=== PATIENT | female | born 1950 | race Caucasian/White ===

== ENCOUNTER → 2018-04-28 00:59 | Outpatient (CLI) | payer MEDICARE, OTHER, SELFPAY ==
--- NOTE | 2018-04-28 09:45 | DI.REPORT_ITS ---
SYMPTOM/DIAGNOSIS: CHRONIC BACK PAIN, M54.89 LUMBAR SPINE MRI: Routine noncontrast examination was performed. The conus medullaris has a normal appearance and location. At L 5-S 1, there is disc desiccation. There is a mild diffuse disc bulge. No focal disc herniation or central spinal canal stenosis is seen. No significant neural foraminal stenosis is present. At L 4-5, there is grade I anterolisthesis of L 4 on L 5. There does appear to be bilateral spondylolysis of L 4. There is a diffuse bulge and mild narrowing of the central spinal canal. No significant neural foraminal stenosis is seen. There is disc desiccation present. At L 3-4, there is disc desiccation. There is a diffuse disc bulge. No focal disc herniation is seen. There are hypertrophic changes of the facets. These all contribute to cause mild central spinal canal stenosis. There is also mild right neural foraminal stenosis, the left neural foramen appears widely patent. At L 2-3, there is mild disc desiccation. Mild degenerative endplate signal changes are present. There is a mild diffuse disc bulge. Degenerative changes of the facets and ligamentum flavum are noted. There is mild narrowing of the central spinal canal. There is mild right neural foraminal stenosis and mild left neural foraminal stenosis. At L 1-2, there is a mild diffuse disc bulge but no focal disc herniation or central spinal canal stenosis is present. There is mild bilateral neural foraminal stenosis. Apart from the degenerative signal changes, the marrow signal is within normal limits. IMPRESSION: 1. 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 The findings do result in mild narrowing of the central spinal canal. 2. Mild to moderate multi level degenerative changes resulting in central spinal canal and neural foraminal stenosis as described above.
== END ==
PROVIDERS: PCP Physician Assistant Medical; Visit Provider Physician Assistant Medical
DX: M54.5 Low back pain (principal); G89.29 Other chronic pain; M43.07 Spondylolysis, lumbosacral region; M43.16 Spondylolisthesis, lumbar region
CPT/HCPCS: 72148

== ENCOUNTER 2018-06-16 20:59 | Outpatient (REF) | payer MEDICARE, OTHER, SELFPAY ==
[2018-06-16 21:19] LABS: Absolute Basophil Count 0.02 k/cumm (0.0-0.2); Absolute Eosinophil Count 0.03 k/cumm (0.0-0.7); Absolute Lymphocyte Count 1.68 k/cumm (1.2-3.4); Absolute Monocyte Count 0.26 k/cumm (0.11-0.7); Basophils % 0.5; Eosinophils % 0.7; HCT 40.2 % (36.0-46.0); HGB 12.7 g/dL (12.0-15.5); Lymphocytes % 40.1; Mean Corp. HGB Concentration 31.6 g/dL (32.0-36.0); Mean Corpuscular Hemoglobin 31.3 pg (27.0-33.0); Mean Platelet Volume 11.3 fL (8.0-11.0); Monocytes % 6.2; Neutrophils % 52.5; Platelet Count 279 x1000/uL (130-400); RBC 4.06 m/cumm (4.00-5.20); RBC Distribution Width 13.2 % (11.7-14.6); White Blood Cell Count 4.19 k/cumm (4.4-10.8)
[2018-06-16 21:29] LABS: ALT 47 U/L (12-78); AST 27 U/L (15-37); Albumin 3.7 g/dL (3.4-5.0); Alkaline Phosphatase 68 U/L (46-116); Anion Gap 5.7 mmol/L (3-11); Bilirubin, Total 0.5 mg/dL (0.2-1.0); CO2 30.3 mmol/L (21.0-32.0); CREATININE 0.69 mg/dL (0.55-1.02); Calcium 8.7 mg/dL (8.5-10.1); Chloride 107 mmol/L (98-107); Cholesterol 202 mg/dL (50-200); Glucose 112 mg/dL (70-100); HDL Cholesterol 94 mg/dL (40-60); LDL CHOLESTEROL 96 mg/dL (<100); Potassium 4.2 mmol/L (3.5-5.1); Sodium 143 mmol/L (136-145); Total Protein 7.1 g/dL (6.4-8.2); Triglyceride 65 mg/dL (30-150)
[2018-06-16 21:57] LABS: BUN 14 mg/dL (7-18)
== END 2018-06-16 21:19 ==
LOC: NCHCN 20:59
PROVIDERS: PCP Physician Assistant Medical; Visit Provider Physician Assistant Medical
DX: R53.83 Other fatigue (principal); Z13.6 Encounter for screening for cardiovascular disorders
CPT/HCPCS: 80053; 80061; 83721; 85025

== ENCOUNTER 2018-12-08 02:28 | Outpatient (CLI) | payer MEDICARE, SELFPAY | END 2018-12-08 02:48 | PROVIDERS: PCP Physician Assistant Medical; Visit Provider Nurse Practitioner Primary Care | DX: I49.3 Ventricular premature depolarization (principal); I49.1 Atrial premature depolarization | CPT/HCPCS: 93225 ==

== ENCOUNTER 2018-12-09 17:26 | Outpatient (CLI) | payer MEDICARE, SELFPAY ==
--- NOTE | 2018-12-10 09:14 | HOLTER_ITS ---
HOLTER MONITOR DATE OF DICTATION December 10, 2018 INDICATION PVCs REQUESTING PROVIDER Lalita Gallagher NP FINDINGS The patient was monitored for 1 day. The baseline sinus rhythm. Average heart rate 71 beats per minute, range 49 to 135 beats per minute. Frequent ventricular ectopy: 8205 single PVCs, 91 couplets and 5 triplets. Total PVC burden 8.1%. One 4-beat ventricular run with a maximum heart rate of 102. Rare supraventricular ectopy: 383 PACs. 4 atrial runs, longest 4 beats, fastest 146 beats per minute. No pause greater than 3 seconds. No higher degree heart block. 8 patient events. 6 events correlated with PVCs. All other events did not correlate with arrhythmias. FINAL INTERPRETATION Frequent PVCs, at times symptomatic. Fede Garcia M.D. KORI/shaheen T - 12/10/2018
== END 2018-12-09 17:46 ==
PROVIDERS: PCP Physician Assistant Medical; Visit Provider Nurse Practitioner Primary Care
DX: I49.3 Ventricular premature depolarization (principal); I49.1 Atrial premature depolarization
CPT/HCPCS: 93226

== ENCOUNTER 2018-12-10 08:19 | Outpatient (CLI) | payer MEDICARE, SELFPAY | END 2018-12-10 08:39 | PROVIDERS: PCP Physician Assistant Medical; Referring Provider Physician Assistant Medical; Visit Provider Student in an Organized Health Care Education/Training Program | DX: I49.3 Ventricular premature depolarization (principal); I49.1 Atrial premature depolarization | CPT/HCPCS: 93227 ==

== ENCOUNTER 2018-12-17 00:07 | Outpatient (CLI) | payer MEDICARE, SELFPAY ==
--- NOTE | 2018-12-17 14:00 | ETT_ITS ---
*[facility]* *[facility]* [address] [place] [address] Stress Electrocardiography Go protocol Date of study: 12/17/2018 *PATIENT PRESENTATION* Height: 184.2cm (72.5in) Blood Pressure: Weight: 80.9kg (178lb) BSA: 2.04m^2 Referring physician: Lalita Gallagher Aprn Ordering physician: Lalita Gallagher Aprn Impressions: - Negative stress test after maximal exercise. - PVC's subsided with exercise. No ventricular tachycardia. Summary: 1. Stress ECG conclusions: The stress ECG is negative. Baker treadmill score: 6. This score predicts a low risk of cardiac events. 2. Stress: The target heart rate was achieved. The heart rate response to stress is exaggerated. There is a normal resting blood pressure with an appropriate response to stress. The patient experienced no chest pain during stress. Exercise capacity is above normal for age. 3. Baseline ECG: Ventricular monomorphic bigeminy with left bundle branch block with an inferior axis QRS morphology. 4. Treadmill exercise testing was performed using the Go protocol. The patient exercised for 6 min, to protocol stage 2, to a maximal work rate of 7.1mets. Indication: R06.02, Appropriate Use Criteria: A (Appropriate). History: REASON FOR VISIT: PALPITATIONS WITH PVCs NOTED ON EKG DURING DOCTORS VISIT. PT DENIES ANY CHEST PAIN OR PRESSURE. PT WAS RECENTLY PUT ON FLOUXETINE IN ATTEMPTS TO DECREASE HER PALPITATIONS. Risk factors: Cholesterol: 220mg/dl. HDL: 94mg/dl. LDL: 96mg/dl. Triglycerides: 65mg/dl. ALLERGIES: NO KNOWN ALLERGIES. MEDICATIONS: FLUOXETINE 10 MG DAILY. MVI DAILY. Protocol: Go protocol. Baseline ECG: SINUS RHYTHM. VENTRICULAR BIGEMINY. HR 81 BPM. Normal sinus rhythm. Ventricular monomorphic bigeminy with left bundle branch block with an inferior axis QRS morphology. Stress protocol: + +---+ + !Stage !HR !BP (mmHg) ! + +---+ + !Baseline supine !81 !148/72 (97) ! + +---+ + !Baseline standing !108!140/80 (100) ! + +---+ + !Stage I; 1.7mph, 10degrees; 3 min !124!164/92 (116) ! + +---+ + !Stage II; 2.5mph, 12degrees; 3 min!148!166/92 (117) ! + +---+ + !Peak stress !167! ! + +---+ + !Recovery; 1 min !122!180/100 (127)! + +---+ + !Recovery; 3 min !101!180/100 (127)! + +---+ + !Recovery; 6 min !94 !162/92 (115) ! + +---+ + !Recovery; 9 min !94 !160/80 (107) ! + +---+ + * Stress results: Maximal heart rate during stress was 167bpm (111% of maximal predicted heart rate). The maximal predicted heart rate was 150bpm. The target heart rate was achieved. The heart rate response to stress is exaggerated. There is a normal resting blood pressure with an appropriate response to stress. The rate-pressure product for the peak heart rate and blood pressure was 74201ma Hg/min. The patient experienced no chest pain during stress. Exercise capacity is above normal for age. Stress ECG: TREADMILL PORTION OF STRESS TEST ENDED IN 6 MINUTES & 1 SECOND NORMAL HEART RATE AND BLOOD PRESSURE RESPONSE TO EXERCISE. MAX HR = 167 % OF TARGET = 111 FREQUENT VENTRICULAR BIGEMINY THROUGHOUT TESTING. OCCASIONAL COUPLETS. MULTIFOCAL PVCs NOTED. APPROXIMATE METS ACHIEVED = 7.05 PALPITATIONS REPORTED. NO ANGINA. NO SIGNIFICANT ST SEGMENT CHANGES ABOVE AVERAGE FUNCTIONAL CAPACITY FOR EXERCISE The stress ECG is negative. Baker treadmill score: 6. This score predicts a low risk of cardiac events. Study data: Fede Garcia MD supervised and was readily available during the procedure. This study was interpreted by [facility]. Study status: Routine. Consent: The risks, benefits, and alternatives to the procedure were explained to the patient and informed consent was obtained. Procedure: Initial setup. A baseline ECG was recorded. Surface ECG leads and manual cuff blood pressure measurements were monitored. Heart sounds: Normal. Lung sounds: Normal. Treadmill exercise testing was performed using the Go protocol. The patient exercised for 6 min, to protocol stage 2, to a maximal work rate of 7.1mets. Study completion: The patient tolerated the procedure well and was discharged from the lab. Discharge: The patient left the laboratory in stable condition. Birthdate: Patient birthdate: 1950. Sex: Gender: female. Study date: Study date: 12/17/2018. Study time: 00:01 AM. Signature Documentation: The Stress ECG portion of this study was interpreted by Fede Garcia MD. Electronically signed by Fede Garcia 12/17/2018 15:36
== END 2018-12-17 00:27 ==
PROVIDERS: PCP Physician Assistant Medical; Visit Provider Nurse Practitioner Primary Care
DX: R00.2 Palpitations (principal); R06.02 Shortness of breath; I49.3 Ventricular premature depolarization
CPT/HCPCS: 93016; 93018; 93017

== ENCOUNTER 2018-12-23 01:24 | Outpatient (CLI) | payer MEDICARE, SELFPAY ==
--- NOTE | 2018-12-23 09:05 | MERGE_ITS ---
*[facility]* *[facility]* [address] [place] [address] Date of study: 12/23/2018 Transthoracic Echocardiography M-mode, complete 2D, complete spectral Doppler, and color Doppler *STUDY CONCLUSIONS* Impressions: Frequent ectopy was noted on this study, making this study technically difficult for the assessment of cardiac function. Summary: 1. Left ventricle: The cavity size was mildly to moderately dilated. Wall thickness was normal. Systolic function was normal. The estimated ejection fraction was 55-60%. Wall motion was normal; there were no regional wall motion abnormalities. 2. Mitral valve: Mildly thickened leaflets. No echocardiographic evidence for prolapse. There was moderate regurgitation directed posteriorly. 3. Right ventricle: The cavity size was normal. Wall thickness was normal. Systolic function was normal. 4. Tricuspid valve: There was mild-moderate regurgitation. 5. Pulmonary arteries: Pulmonary systolic pressure was increased, in the range of 35mm Hg to 40mm Hg. *PATIENT PRESENTATION* Height: 182.9cm ((72in) ) S/D Pressure: 154 / 89 Weight: 80.7kg ((177.6lb) ) BSA: 2.03m^2 Test start time: 07:45 AM. Test stop time: 08:45 AM. PERFORMING Unknown PERFORMING [facility] CONSULTING Mari Barfield Melissa Aprn REFERRING Lalita Gallagher Aprn RIGGER THIRD Meghna Marion, (R)(CT), ADAMARIS *PROCEDURE DATA* Procedure information: The patient was identified by two identifiers. This study was interpreted by [facility]. Pertinent images and digital data are archived for permanent storage and are available for subsequent review. No prior study was available for comparison. Study status: Routine. Transthoracic echocardiography. M-mode, complete 2D, complete spectral Doppler, and color Doppler. A Transthoracic Echocardiogram was performed. Scanning was performed from the parasternal, apical, subcostal, and suprasternal notch acoustic windows. Images were obtained using an [id number] cardiac ultrasound machine. Image quality was adequate. Study completion: The patient tolerated the procedure well. There were no complications. History: PMH: SOB R06.02 PVCs. *CARDIAC ANATOMY* Left ventricle: The cavity size was mildly to moderately dilated. Wall thickness was normal. Systolic function was normal. The estimated ejection fraction was 55-60%. Wall motion was normal; there were no regional wall motion abnormalities. Aortic valve: Trileaflet; mildly thickened leaflets. Doppler: There was no stenosis. There was no significant regurgitation. VTI ratio of LVOT to aortic valve: 0.55. Valve area (VTI): 2.3cm^2. Indexed valve area (VTI): 1.1cm^2/m^2. Peak velocity ratio of LVOT to aortic valve: 0.59. Valve area (Vmax): 2.4cm^2. Indexed valve area (Vmax): 1.2cm^2/m^2. Mean velocity ratio of LVOT to aortic valve: 0.63. Valve area (Vmean): 2.6cm^2. Indexed valve area (Vmean): 1.3cm^2/m^2. Mean gradient (S): 6.4mm Hg. Peak gradient (S): 10.8mm Hg. Aorta: Aortic root: The aortic root was normal in size. Ascending aorta: The ascending aorta was normal in size. Mitral valve: Mildly thickened leaflets. Mobility was not restricted. No echocardiographic evidence for prolapse. Doppler: Transvalvular velocity was within the normal range. There was no evidence for stenosis. There was moderate regurgitation directed posteriorly. Valve area by pressure half-time: 2.9cm^2. Indexed valve area by pressure half-time: 1.4cm^2/m^2. Left atrium: The atrium was normal in size. Right ventricle: The cavity size was normal. Wall thickness was normal. Systolic function was normal. Pulmonic valve: Structurally normal valve. Doppler: Transvalvular velocity was within the normal range. There was no evidence for stenosis. There was mild regurgitation. Peak gradient (S): 2.5mm Hg. Tricuspid valve: Structurally normal valve. Doppler: Transvalvular velocity was within the normal range. There was no evidence for stenosis. There was mild-moderate regurgitation. Pulmonary artery: Pulmonary systolic pressure was increased, in the range of 35mm Hg to 40mm Hg. Right atrium: The atrium was normal in size. Pericardium: There was no pericardial effusion. Systemic veins: Inferior vena cava: Well visualized. The vessel was patent and normal in size. The respirophasic diameter changes were in the normal range (greater than or equal to 50%). Measurements Left ventricle Value Reference LV ID, ED, PLAX (H) 6.1 cm 3.5 - 6.0 LV ID, ES, PLAX (H) 4.3 cm 2.1 - 4.0 LV PW thickness, ED, PLAX 1.0 cm LV end-diastolic volume, 1-p A2C 122 ml LV ejection fraction, 1-p A2C 61 % LV end-diastolic volume, 1-p A4C 136 ml LV ejection fraction, 1-p A4C 59 % LV e', lateral 0.054 m/sec LV E/e', lateral 8 LV e', medial 0.053 m/sec LV E/e', medial 8 LV e', average 0.053 m/sec LV E/e', average 8 Ventricular septum Value Reference IVS thickness, ED, PLAX 1.0 cm LVOT Value Reference LVOT ID, S 2.3 cm LVOT ID, A-P 2.1 cm LVOT area 4.2 cm^2 LVOT peak velocity, S 0.96 m/sec LVOT mean velocity, S 0.76 m/sec LVOT VTI, S 18.6 cm LVOT peak gradient, S 3.7 mm Hg LVOT mean gradient, S 2.5 mm Hg Stroke volume (SV), LVOT DP 61 ml Stroke index (SV/bsa), LVOT DP 30 ml/m^2 Aortic valve Value Reference Aortic valve peak velocity, S 1.6 m/sec Aortic valve mean velocity, S 1.2 m/sec Aortic valve VTI, S 34.0 cm Aortic mean gradient, S 6.4 mm Hg Aortic peak gradient, S 10.8 mm Hg VTI ratio, LVOT/AV 0.55 Aortic valve area, VTI 2.3 cm^2 Velocity ratio, peak, LVOT/AV 0.59 Aortic valve area, peak velocity 2.4 cm^2 Velocity ratio, mean, LVOT/AV 0.63 Aortic valve area, mean velocity 2.6 cm^2 Aortic valve area/bsa, mean velocity 1.3 cm^2/m^2 Aorta Value Reference Aortic root ID, ED 3.0 cm Ascending aorta ID, A-P, S 3.2 cm Left atrium Value Reference LA ID, A-P, ES 3.4 cm LA ID/bsa, A-P 1.7 cm/m^2 <=2.2 LA area, ES, A4C (H) 25.8 cm^2 8.8 - 23.4 LA area, ES, A2C 23 cm^2 LA volume/bsa, ES, 1-p A4C 45 ml/m^2 LA volume, ES, 2-p 71 ml LA volume/bsa, ES, 2-p 35 ml/m^2 LA/aortic root ratio 1.14 Mitral valve Value Reference Mitral E-wave peak velocity 0.41 m/sec Mitral A-wave peak velocity 0.47 m/sec Mitral deceleration time (H) 263 ms 150 - 230 Mitral pressure half-time 76 ms Mitral E/A ratio, peak 0.87 Mitral valve area, PHT, DP 2.9 cm^2 Pulmonary veins Value Reference Pulmonary vein peak velocity, S 0.63 m/sec Pulmonary vein peak velocity, D 0.68 m/sec Pulmonary vein velocity ratio, peak, 0.92 S/D Pulmonary vein A-wave reversal peak 1.01 m/sec velocity Pulmonary vein A-wave reversal 182 ms duration Tricuspid valve Value Reference Tricuspid regurg peak velocity 3.3 m/sec Tricuspid peak RV-RA gradient 42.9 mm Hg Right atrium Value Reference RA area, ES, A4C (H) 20.2 cm^2 8.3 - 19.5 Pulmonic valve Value Reference Pulmonic peak gradient, S 2.5 mm Hg Pulmonic regurg velocity, ED 0.78 m/sec Legend: (L) and (H) ashlie values outside specified reference range. I have personally reviewed the images and have reviewed and edited the reported findings. Electronically signed by Fede Garcia 12/23/2018 15:48
== END 2018-12-23 01:44 ==
PROVIDERS: PCP Physician Assistant Medical; Visit Provider Nurse Practitioner Primary Care
DX: R06.02 Shortness of breath (principal); I49.3 Ventricular premature depolarization; I34.0 Nonrheumatic mitral (valve) insufficiency
CPT/HCPCS: 93306

== ENCOUNTER 2019-01-09 15:27 | Outpatient (REF) | payer MEDICARE, SELFPAY ==
[2019-01-09 20:07] LABS: TSH (W/Ref FT4) 1.95 uIU/mL (0.358-3.74)
== END 2019-01-09 15:47 ==
LOC: NCHCN 15:27
PROVIDERS: PCP Physician Assistant Medical; Visit Provider Physician Assistant Medical
DX: R00.2 Palpitations (principal); I49.3 Ventricular premature depolarization
CPT/HCPCS: 84443

== ENCOUNTER 2019-07-13 15:02 | Outpatient (REF) | payer MEDICARE, SELFPAY ==
[2019-07-13 22:17] LABS: Hemoglobin A1C 6.1 % (4.5-6.2)
[2019-07-13 22:22] LABS: ALT 29 U/L (14-59); AST 20 U/L (15-37); Albumin 4.1 g/dL (3.4-5.0); Alkaline Phosphatase 77 U/L (46-116); BUN 11 mg/dL (7-18); Bilirubin, Total 0.6 mg/dL (0.2-1.0); CREATININE 0.68 mg/dL (0.55-1.02); Calcium 9.5 mg/dL (8.5-10.1); Calculated LDL 116 mg/dL; Chloride 101 mmol/L (98-107); Cholesterol 234 mg/dL (50-200); Glucose 89 mg/dL (70-100); HDL Cholesterol 106 mg/dL (40-60); Potassium 4.7 mmol/L (3.5-5.1); Sodium 140 mmol/L (136-145); Total Protein 7.9 g/dL (6.4-8.2); Triglyceride 63 mg/dL (30-150)
[2019-07-15 11:53] LABS: Lyme Ab w Rflx to Lyme Confirm Negative (Negative)
[2019-07-16 17:47] LABS: Anaplasma phagocytophilum Negative (Negative); B. miyamotoi PCR Negative (Negative); Babesia divergens/MO-1 Negative (Negative); Babesia duncani Negative (Negative); Babesia microti Negative (Negative); Ehrlichia chaffeensis Negative (Negative); Ehrlichia ewingii/canis Negative (Negative); Ehrlichia muris eauclairensis Negative (Negative)
== END 2019-07-13 15:22 ==
LOC: NCHCN 15:02
PROVIDERS: PCP Physician Assistant Medical; Visit Provider Physician Assistant Medical
DX: I49.3 Ventricular premature depolarization (principal); R73.01 Impaired fasting glucose; Z13.6 Encounter for screening for cardiovascular disorders
CPT/HCPCS: 80053; 80061; 87798; 83036; 86618

== ENCOUNTER 2020-02-09 09:11 | Outpatient (REF) | payer MEDICARE, SELFPAY ==
[2020-02-09 19:16] LABS: Absolute Basophil Count 0.01 k/cumm (0.0-0.2); Absolute Eosinophil Count 0.02 k/cumm (0.0-0.7); Absolute Lymphocyte Count 2.09 k/cumm (1.2-3.4); Absolute Neutrophil Count 0.97 k/cumm (1.2-6.7); Basophils % 0.3; Eosinophils % 0.6; HCT 43.1 % (36.0-46.0); HGB 13.8 g/dL (12.0-15.5); Lymphocytes % 63.5; Mean Corpuscular Hemoglobin 29.9 pg (27.0-33.0); Mean Corpuscular Volume 93.5 fL (80-95); Mean Platelet Volume 11.5 fL (8.0-11.0); Monocytes % 6.1; Neutrophils % 29.5; Platelet Count 203 x1000/uL (130-400); RBC 4.61 m/cumm (4.00-5.20); RBC Distribution Width 13.8 % (11.7-14.6); White Blood Cell Count 3.29 k/cumm (4.4-10.8)
[2020-02-09 19:55] LABS: Hemoglobin A1C 5.7 % (3.8-5.6)
[2020-02-09 20:18] LABS: Diff Comment Diff Reviewed; RBC Morphology Normal
== END 2020-02-09 09:31 ==
LOC: NCHCN 09:11
PROVIDERS: PCP Physician Assistant Medical; Visit Provider Physician Assistant Medical
DX: R73.03 Prediabetes (principal); R53.83 Other fatigue
CPT/HCPCS: 83036; 85025

== ENCOUNTER 2020-07-04 20:01 | Outpatient (REF) | payer MEDICARE, SELFPAY ==
[2020-07-04 19:39] LABS: Hemoglobin A1C 5.7 % (<5.7)
[2020-07-04 20:24] LABS: Anion Gap 8.1 mmol/L (3-11); BUN 13 mg/dL (7-18); CO2 27.9 mmol/L (21.0-32.0); CREATININE 0.67 mg/dL (0.55-1.02); Calcium 9.3 mg/dL (8.5-10.1); Chloride 102 mmol/L (98-107); Glucose 98 mg/dL (74-106); Potassium 4.1 mmol/L (3.5-5.1); Sodium 138 mmol/L (136-145)
== END 2020-07-04 20:21 ==
LOC: NCHCN 20:01
PROVIDERS: PCP Physician Assistant Medical; Visit Provider Physician Assistant Medical
DX: R73.03 Prediabetes (principal); I49.3 Ventricular premature depolarization
CPT/HCPCS: 80048; 83036; 84443

== ENCOUNTER 2020-08-24 00:50 | Outpatient (CLI) | payer MEDICARE, SELFPAY ==
--- NOTE | 2020-08-24 | DI.US_ITS ---
EXAM: US SOFT TISSUE HEAD OR NECK CLINICAL HISTORY: GLOBUS SENSATION,F45.8. TECHNIQUE: Ultrasound was performed using standard protocol. COMPARISON: No exams were available for comparison FINDINGS: Sonographic assessment utilizing grayscale and color Doppler imaging was performed and targeted to th e area of clinical concern. Sonographic evaluation of the soft tissues of the neck was performed. No suspicious cystic or solid masses are seen in the soft tissues. Incidental note is made of a 1.1 x 0.5 x 0.5 cm spongiform hypo echoic nodule in the left lobe of the thyroid gland. It is well-circumscribed with no echogenic foci noted. This would corresponds to a TI-RADS level 2 nodule. No follow-up is recommended. IMPRESSION: No suspicious cystic or solid mass in the neck sonographically. DATA REPOSITORY:
--- OUTSIDE RECORDS SUMMARY | 2020-08-24 00:53 | XMS_ITS ---
:1950 Author Care Team Providers Name Role Phone Celi Sarkar Primary Care Provider Unavailable Allergies Code Code System Name Reaction Severity Status Onset NKDA ? Medications Name Status Start Date Stop Date ? ? azithromycin 250 mg tablet Active ? Not a vailable Cheratussin AC 10 mg-100 mg/5 mL oral liquid Active ? Not available Take 10 mL every 8 hours by oral route. ipratropium 0.5 mg-albuterol 3 mg (2.5 mg base)/3 mL nebulizatio n soln Active ? Not available 3 ml per nebulizer Levaquin 500 mg tablet Active ? Not avail able Take 1 tablet every 24 hours by oral route. Medrol (Ernesto) 4 mg tablets in a dose pack Active ? Not available use as directed Ventolin HFA 90 mcg/actuation aerosol inhaler Active ? Not available Inhale 2 puffs every 4 hours by inhalation route. Notes: pt no longer taking this medication Problems None recorded. Procedures Date Name Performed by ? 12/01/2017 XR, Chest Information not avai lable Results Lab Results None recorded. Past Encounters None recorded. Social History None recorded. Vaccine List None recorded. Plan of Care Reminders Provider Appointments None ? ? recorded. Lab None ? ? recorded. Referral None ? ? recorded. Procedures None ? ? recorded. Surgeries None ? ? recorded. Imaging None ? ? recorded. Vitals Height Weight BMI Blood Pressure 72 in 172 lbs 16 oz 23.5 kg/m2 132/88 mm[Hg]
== END 2020-08-24 01:10 ==
PROVIDERS: PCP Physician Assistant Medical; Visit Provider Physician Assistant Medical
DX: F45.8 Other somatoform disorders (principal)
CPT/HCPCS: 76536

== ENCOUNTER 2021-03-21 12:13 | Outpatient (REF) | payer MEDICARE, SELFPAY ==
[2021-03-21 20:06] LABS: HCT 42.9 % (36.0-46.0); HGB 13.6 g/dL (11.2-15.7); MCH 30.4 pg (27.0-33.0); MCHC 31.7 % (32.0-36.0); MCV 95.8 fL (80-95); MPV 11.5 fL (8.0-11.0); Platelet Count 207 10^3/uL (130-400); RBC 4.48 10^6/uL (3.93-5.22); RDW 13.5 % (11.7-14.6); RDW-SD 48.5 fL; WBC 3.51 10^3/uL (4.4-10.8)
[2021-03-21 20:58] LABS: Calculated LDL 125 mg/dL (<100); Cholesterol 228 mg/dL (<200); HDL Cholesterol 92 mg/dL (40-60); Triglyceride 59 mg/dL (<150)
[2021-03-21 22:51] LABS: Hemoglobin A1C 5.9 % (<5.7)
== END 2021-03-21 12:14 | disposition home or self-care (01) ==
LOC: NCHCN 12:13
PROVIDERS: PCP Physician Assistant Medical; Visit Provider Physician Assistant Medical
DX: Z00.8 Encounter for other general examination (principal); R73.03 Prediabetes; D72.819 Decreased white blood cell count, unspecified; R53.83 Other fatigue
CPT/HCPCS: 80061; 85027; 83036; 83735

== ENCOUNTER 2021-09-29 11:48 | Outpatient (REF) | payer MEDICARE, SELFPAY ==
[2021-10-01 10:15] LABS: Campylobacter PCR Negative (Negative); Salmonella PCR Negative (Negative); Shiga Toxin PCR Negative (Negative); Shigella/Enteroinvasive Ecoli Negative (Negative)
== END 2021-09-29 11:49 | disposition home or self-care (01) ==
LOC: NCHCN 11:48
PROVIDERS: PCP Physician Assistant Medical; Visit Provider Physician Assistant Medical
DX: R19.7 Diarrhea, unspecified (principal)
CPT/HCPCS: 87329; 87493; 87505; 83630

== ENCOUNTER 2021-10-17 11:09 | Outpatient (REF) | payer MEDICARE, SELFPAY ==
[2021-10-17 12:59] LABS: Abs Immature Grans 0.01 10^3/uL (0.0-0.06); Absolute Basophil Count 0.01 10^3/uL (0.0-0.2); Absolute Eosinophil Count 0.03 10^3/uL (0.0-0.7); Absolute Lymphocyte Count 1.81 10^3/uL (1.2-3.4); Absolute Monocyte Count 0.23 10^3/uL (0.1-0.8); Absolute Neutrophil Count 2.28 10^3/uL (1.2-6.7); Basophils % 0.2; Eosinophils % 0.7; HCT 43.6 % (36.0-46.0); HGB 13.7 g/dL (11.2-15.7); Immature Grans % 0.2; Lymphocytes % 41.4; MCH 30.2 pg (27.0-33.0); MCHC 31.4 % (32.0-36.0); MCV 96.2 fL (80-95); MPV 10.7 fL (8.0-11.0); Monocytes % 5.3; Neutrophils % 52.2; Nucleated RBC 0 %; Platelet Count 228 10^3/uL (130-400); RBC 4.53 10^6/uL (3.93-5.22); RDW-SD 46.4 fL; WBC 4.37 10^3/uL (4.4-10.8)
[2021-10-17 13:00] LABS: ESR 5 mm/hr (0-30)
[2021-10-17 13:51] LABS: Hemoglobin A1C 5.7 % (<5.7)
[2021-10-18 11:40] LABS: IgA 189 mg/dL (85-499); Interpretation (See Note); Tissue Transglutaminase IgA <1.2 U/mL (<4.0)
== END 2021-10-17 11:10 | disposition home or self-care (01) ==
LOC: NCHCN 11:09
PROVIDERS: PCP Physician Assistant Medical; Visit Provider Physician Assistant Medical
DX: R73.09 Other abnormal glucose; R19.4 Change in bowel habit
CPT/HCPCS: 82784; 83516; 85652; 83036; 85025

== ENCOUNTER 2021-11-03 00:38 | Outpatient (CLI) | payer MEDICARE, SELFPAY ==
--- NOTE | 2021-11-03 08:30 | DI.DEXA_ITS ---
Exam(s) XR DEXA BONE DENSITY W/WO LUCILA EXAM: XR DEXA BONE DENSITY W/WO LUCILA CLINICAL HISTORY: ASYMPTOMATIC POSTMENOPAUSAL STATUS, Z78.0 TECHNIQUE: COMPARISON: No exams were available for comparison FINDINGS: Lateral Spine Image: Unremarkable. No compression deformities identified. Left hip: Total T-Score: -2.0 Total Z-Score: -0.3 T- and Z-scores: Findings are consistent with osteopenia. Lumbar Spine: Total T-Score: -1.3 Total Z-Score: 1.0 T- and Z-scores: Findings are consistent with osteopenia. IMPRESSION: No evidence of osteoporosis.
== END 2021-11-03 00:58 ==
PROVIDERS: PCP Physician Assistant Medical; Visit Provider Physician Assistant Medical
DX: Z78.0 Asymptomatic menopausal state (principal); Z13.820 Encounter for screening for osteoporosis; M85.89 Other specified disorders of bone density and structure, multiple sites
CPT/HCPCS: 77080

== ENCOUNTER 2022-07-16 15:15 | Outpatient (REF) | payer MEDICARE, SELFPAY ==
[2022-07-16 17:14] LABS: HCT 41.9 % (36.0-46.0); HGB 13.4 g/dL (11.2-15.7); MCH 30.5 pg (27.0-33.0); MCV 95 fL (80-95); Platelet Count 232 10^3/uL (130-400); RBC 4.39 10^6/uL (3.93-5.22); RDW 13.2 % (11.7-14.6); RDW-SD 46.6 fL; WBC 4.36 10^3/uL (4.4-10.8)
[2022-07-16 17:28] LABS: ALT 26 U/L (14-59); AST 20 U/L (15-37); Albumin 3.8 g/dL (3.4-5.0); Alkaline Phosphatase 72 U/L (46-116); Anion Gap 7.3 mmol/L (3-11); BUN 11 mg/dL (7-18); Bilirubin, Total 0.6 mg/dL (0.2-1.0); CO2 29.7 mmol/L (21.0-32.0); CREATININE 0.6 mg/dL (0.55-1.02); Calculated LDL 130 mg/dL (<100); Chloride 103 mmol/L (98-107); Cholesterol 235 mg/dL (<200); Estimated GFR 94.13 (mL/min/1.73m2); Glucose 93 mg/dL (74-106); HDL Cholesterol 89 mg/dL (40-60); Potassium 3.8 mmol/L (3.5-5.1); Sodium 140 mmol/L (136-145); TSH (W/Ref FT4) 1.62 uIU/mL (0.36-3.74); Total Protein 7.8 g/dL (6.4-8.2); Triglyceride 81 mg/dL (<150)
== END 2022-07-16 15:16 | disposition home or self-care (01) ==
LOC: NCHCN 15:15
PROVIDERS: PCP Physician Assistant Medical; Visit Provider Physician Assistant Medical
DX: F41.8 Other specified anxiety disorders (principal); R73.03 Prediabetes; K21.9 Gastro-esophageal reflux disease without esophagitis; E78.89 Other lipoprotein metabolism disorders; Z00.8 Encounter for other general examination
CPT/HCPCS: 80053; 80061; 85027; 84443

== ENCOUNTER 2023-07-03 16:26 | Outpatient (REF) | payer MEDICARE, SELFPAY ==
[2023-07-03 20:26] LABS: Hemoglobin A1C 5.9 % (<5.7)
[2023-07-03 20:29] LABS: ALT 27 U/L (14-59); AST 19 U/L (15-37); Albumin 3.9 g/dL (3.4-5.0); Alkaline Phosphatase 74 U/L (46-116); Anion Gap 9.7 mmol/L (3-11); BUN 11 mg/dL (7-18); Bilirubin, Total 0.6 mg/dL (0.2-1.0); CO2 27.3 mmol/L (21.0-32.0); CREATININE 0.7 mg/dL (0.55-1.02); Calcium 9.9 mg/dL (8.5-10.1); Calculated LDL 124 mg/dL (<100); Chloride 101 mmol/L (98-107); Cholesterol 218 mg/dL (<200); Estimated GFR 90.14 (mL/min/1.73m2); Glucose 93 mg/dL (74-106); HDL Cholesterol 84 mg/dL (40-60); Potassium 5.1 mmol/L (3.5-5.1); Sodium 138 mmol/L (136-145); Total Protein 7.9 g/dL (6.4-8.2); Triglyceride 53 mg/dL (<150)
== END 2023-07-03 16:27 | disposition home or self-care (01) ==
LOC: NCHCN 16:26
PROVIDERS: PCP Physician Assistant Medical; Visit Provider Physician Assistant Medical
DX: R73.03 Prediabetes (principal); Z00.8 Encounter for other general examination
CPT/HCPCS: 80053; 80061; 83036

== ENCOUNTER 2024-01-06 16:22 | Outpatient (REF) | payer MEDICARE, SELFPAY ==
[2024-01-06 19:23] LABS: C-Reactive Protein < 0.50 mg/dL (<or=0.5)
[2024-01-06 19:26] LABS: ESR 7 mm/hr (0-30)
[2024-01-08 10:16] LABS: Lyme Ab w Rflx to Lyme Confirm Negative (Negative)
[2024-01-09 21:45] LABS: Anaplasma phagocytophilum Negative (Negative); B. miyamotoi PCR Negative (Negative); Babesia divergens/MO-1 Negative (Negative); Babesia duncani Negative (Negative); Babesia microti Negative (Negative); Ehrlichia chaffeensis Negative (Negative); Ehrlichia ewingii/canis Negative (Negative); Ehrlichia muris eauclairensis Negative (Negative)
== END 2024-01-06 16:23 | disposition home or self-care (01) ==
LOC: NCHCN 16:22
PROVIDERS: PCP Physician Assistant Medical; Visit Provider Nurse Practitioner Family
DX: L28.2 Other prurigo (principal)
CPT/HCPCS: 85652; 87798; 86140; 86618

== ENCOUNTER 2024-03-10 11:42 | Outpatient (REF) | payer MEDICARE, SELFPAY ==
[2024-03-10 16:01] LABS: ALT 23 U/L (14-59); AST 18 U/L (15-37); Albumin 3.6 g/dL (3.4-5.0); Alkaline Phosphatase 78 U/L (46-116); BUN 12 mg/dL (7-18); Bilirubin, Total 0.59 mg/dL (0.2-1.0); CREATININE 0.7 mg/dL (0.55-1.02); Calcium 9.4 mg/dL (8.5-10.1); Chloride 105 mmol/L (98-107); Estimated GFR 90.14 (mL/min/1.73m2); Glucose 112 mg/dL (74-106); Potassium 4.3 mmol/L (3.5-5.1); Sodium 140 mmol/L (136-145); Total Protein 7.5 g/dL (6.4-8.2)
[2024-03-10 16:18] LABS: Abs Immature Grans 0.01 10^3/uL (0.0-0.06); Absolute Basophil Count 0.03 10^3/uL (0.0-0.2); Absolute Eosinophil Count 0.08 10^3/uL (0.0-0.7); Absolute Lymphocyte Count 1.79 10^3/uL (1.2-3.4); Absolute Monocyte Count 0.25 10^3/uL (0.1-0.8); Absolute Neutrophil Count 2.08 10^3/uL (1.2-6.7); Basophils % 0.7 %; Eosinophils % 1.9 %; HCT 41.9 % (36.0-46.0); HGB 13.6 g/dL (11.2-15.7); Immature Grans % 0.2 %; Lymphocytes % 42.2 %; MCH 31.3 pg (27.0-33.0); MCHC 32.5 % (32.0-36.0); MCV 97 fL (80-95); MPV 10.8 fL (8.0-11.0); Monocytes % 5.9 %; Neutrophils % 49.1 %; Platelet Count 258 10^3/uL (130-400); RBC 4.34 10^6/uL (3.93-5.22); RDW 13.1 % (11.7-14.6); RDW-SD 46.7 fL; WBC 4.24 10^3/uL (4.4-10.8)
[2024-03-10 17:00] LABS: Hemoglobin A1C 5.8 % (<5.7)
== END 2024-03-10 11:43 | disposition home or self-care (01) ==
LOC: NCHCN 11:42
PROVIDERS: PCP Physician Assistant Medical; Visit Provider Physician Assistant Medical
DX: R53.83 Other fatigue (principal)
CPT/HCPCS: 80053; 83036; 85025

== ENCOUNTER 2024-09-24 09:11 | Outpatient (CLI) | payer MEDICARE, SELFPAY ==
[2024-09-24 11:41] LABS: HCT 45.8 % (36.0-46.0); HGB 14.6 g/dL (11.2-15.7); MCH 30.5 pg (27.0-33.0); MCHC 31.9 % (32.0-36.0); MCV 96 fL (80-95); MPV 10.6 fL (8.0-11.0); Platelet Count 237 10^3/uL (130-400); RBC 4.78 10^6/uL (3.93-5.22); RDW 12.7 % (11.7-14.6); RDW-SD 45.8 fL; WBC 4.81 10^3/uL (4.4-10.8)
[2024-09-24 12:42] LABS: Hemoglobin A1C 5.7 % (<5.7)
[2024-09-24 12:57] LABS: ALT 21 U/L (14-59); AST 15 U/L (15-37); Albumin 3.9 g/dL (3.4-5.0); Alkaline Phosphatase 80 U/L (46-116); Anion Gap 8.1 mmol/L (3-11); BUN 11 mg/dL (7-18); CO2 28.9 mmol/L (21.0-32.0); CREATININE 0.8 mg/dL (0.55-1.02); Calcium 9.5 mg/dL (8.5-10.1); Calculated LDL 124 mg/dL (<100); Chloride 102 mmol/L (98-107); Cholesterol 244 mg/dL (<200); Estimated GFR 76.31 (mL/min/1.73m2); Glucose 108 mg/dL (74-106); HDL Cholesterol 106 mg/dL (40-60); Magnesium 1.9 mg/dL (1.8-2.4); Potassium 3.8 mmol/L (3.5-5.1); Sodium 139 mmol/L (136-145); Triglyceride 70 mg/dL (<150); Vitamin D 25 Total 35.3 ng/mL (30-100)
== END 2024-09-24 09:12 | disposition home or self-care (01) ==
PROVIDERS: PCP Physician Assistant Medical; Visit Provider Physician Assistant Medical
DX: R73.03 Prediabetes (principal); M85.80 Other specified disorders of bone density and structure, unspecified site; F41.9 Anxiety disorder, unspecified
CPT/HCPCS: 36415; 80053; 80061; 82306; 85027; 83036; 83735

== ENCOUNTER 2024-11-08 16:21 | Emergency (ER) | payer MEDICARE, SELFPAY ==
[2024-11-08 16:24] VITALS: BP 158/91; PULSE 66; RESP 16; TEMP 36.6; O2SAT 98
--- NOTE | 2024-11-08 16:37 | ED.GENADUL_ITS ---
Discharge Plan Disposition Patient Disposition: Home Condition: Stable Discharge Details Clinical Impression: Scalp laceration, Compression fracture of T12 vertebra, Sprain of left wrist Primary Care Provider: Mari Barfield ED Provider: Fox Cazares Home Meds and New Rx's Prescriptions: No Action No Known Home Meds Discharge Instructions Instructions: Wrist Sprain ED, Laceration Repair With [place] ED, Vertebral Compression Fracture ED Additional Instructions: You were seen in the emergency department for your fall from a dining room chair suffering a T12 compression vertebral fracture, this requires no surgical intervention, time should improve your symptoms. You also have a sprained your left wrist, if you have persistent sharp pain in this area especially with range of motion about 2 weeks I stressed getting routine x-rays from her primary care provider in follow-up, you have a posterior scalp laceration that was repaired by 2 ivy, these will need to be removed in 7 to 10 days by presenting back to the ED or express care or your primary care provider. Please take 650 mg of Tylenol every 6 hours, assisted between Tylenol dosing Spacek for 100 mg of ibuprofen also every 6 hours. Please rest, ice, compress and elevate areas of pain. Please return for any urinary retention, bowel incontinence, numbness to the genitals, altered mentation or repetitive questioning, visual changes or gait or coordination abnormalities, sudden onset of projectile vomiting this evening with severe headache. Referrals: Mari Barfield PA [Primary Care Provider] - HPI General Date/Time Provider Initiated Documentation: 11/08/24 16:33 . HPI Narrative: 74 year-old female presents to ED today by POV/ambulating with a chief complaint of fall at home off a chair while changing the batteries in a clock, with onset just prior to arrival. Quality described as low back pain, and occipital head pain, and L wrist pain, no radiation to numbness/tingling, inability to move L hand, neck pain, LOC, nausea/vomiting, altered mentation, amnesia, urinary retention, bowel incontinence, saddle anesthesia, large deformity/bruising. Severity is described as moderate to severe. Palliating factors include nothing specific attempted. Provoking factors include nothing specific. Events leading up to the incident/Associated Symptoms: Patient is R-hand dominant. Patient not anticoagulated. Related Data Home Medications ?Medication ?Instructions ?Recorded ?Confirmed Unknown [No Known Home Meds] 11/08/24 11/08/24 Allergies Allergy/AdvReac Type Severity Reaction Status Date / Time No Known Allergies Allergy Unverified 11/08/24 16:28 General Stated Complaint: Fall/Non TraumaCriteria LUCINDA: 3 Review of Systems All systems reviewed & are unremarkable except as noted in HPI and below Exam Narrative Exam Narrative: GENERAL APPEARANCE: Well-nourished, non-toxic, awake and alert, atraumatic, no acute distress. SKIN: Warm, pink, dry, intact, without rashes/lesions/ulcerations. HEAD: Normocephalic, atraumatic, normal hair distribution for gender/age. EYES: Normal conjunctiva, no exudates on lids/lashes. ENT: Nares patent, no circumoral cyanosis, no facial swelling NECK: Supple, trachea midline, painless cervical ROM. LUNGS/CHEST: Non-labored respirations, normal A/P diameter, symmetrical expansion, no chest wall deformity, no rib tenderness/crepitus HEART (CV/PV): Regular rate, no peripheral edema, no JVD. ABDOMEN: Soft, non-distended, no guarding. MSK: Normal ROM, no swelling/deformity to bilateral UEs or LEs, moving all extremities without weakness, no cyanosis, spine midline without tenderness, normal curvature, mild tenderness and swelling to the left wrist without anatomical snuffbox tenderness, no crepitus or ecchymosis, left radial pulse 2+, able to supinate/pronate, 2 cm laceration occipital scalp without significant scalp hematoma, no cervical vertebral midline tenderness/crepitus/step-offs, mid line tenderness at the upper lumbar spine without crepitus or step-offs, neurovascular intact bilateral lower extremities. NEURO: Mental Status AAOx4 - alert to person, place, time, events No facial droop, no forehead involvement. Motor: No focal weakness - strength 5/5 in bilateral UEs and LEs, proximal and distal, symmetric. Sensory: sensation intact to light touch globally. Gait normal: patient ambulated without ataxia into ED room. PSYCH: euthymic, cooperative, pleasant, appropriate speech Course Vital Signs Vital signs: Vital Signs Temperature 36.6 C 11/08/24 16:24 Pulse 66 11/08/24 16:24 Respiratory Rate 16 11/08/24 16:24 Blood Pressure 158/91 H 11/08/24 16:24 Pulse Oximetry 98 11/08/24 16:24 Temperature 36.6 C 11/08/24 16:24 Pulse 66 11/08/24 16:24 Respiratory Rate 16 11/08/24 16:24 Blood Pressure 158/91 H 11/08/24 16:24 Pulse Oximetry 98 11/08/24 16:24 Pain Level 4 11/08/24 16:24 Procedure Laceration Laceration 1: Date of Procedure: 11/08/24 Time of procedure: 17:48 Provider that performed the procedure: Fox Cazares Standard Time Out Performed: No Patient Consented: Verbally Site: scalp Description: linear and clean Depth: simple, single layer Local anesthetic: LET(lidocaine epinephrine tetracaine) Amount of anesthesia used (mL): 3 Pre-repair:: wound explored, irrigated extensively and deep structures intact Skin layer closed with: ivy Number of sutures:: 2 Complications: None Medical Decision Making This dictation utilizes [id number] dictation software and may contain unedited grammatical errors. 74 year-old female presents to ED today by POV/ambulating with a chief complaint of fall at home off a chair while changing the batteries in a clock, with onset just prior to arrival. Quality described as low back pain, and occipital head pain, and L wrist pain, no radiation to numbness/tingling, inability to move L hand, neck pain, LOC, nausea/vomiting, altered mentation, amnesia, urinary retention, bowel incontinence, saddle anesthesia, large deformity/bruising. Sev erity is described as moderate to severe. Palliating factors include nothing specific attempted. Provoking factors include nothing specific. Events leading up to the incident/Associated Symptoms: Patient is R-hand dominant. Patients' medical history: Negative, otherwise healthy. Family and social history: Noncontributory. Pertinent exam findings / vital signs include mild tenderness and swelling to the left wrist without anatomical snuffbox tenderness, no crepitus or ecchymosis, left radial pulse 2+, able to supinate/pronate, 2 cm laceration occipital scalp without significant scalp hematoma, no cervical vertebral midline tenderness/crepitus/step-offs, midline tenderness at the upper lumbar spine without crepitus or step-offs, neurovascular intact bilateral lower extremities. Differential / pathologies of concern include scalp laceration, vertebral fracture, wrist fracture, sprain/strain, contusion. Diagnostic studies of: -CT thoracic and lumbar spine without contrast, XR left wrist-shows an isolated T12 compression fracture with less than 10% height loss, no acute findings of the left wrist. Interventions of: -Wrist brace provided, recommend RICE therapy and therapeutic dosing of Tylenol and ibuprofen for compression fracture of T12. -Stable repair of his typical scalp laceration,#2 ivy -Tdap UTD 2022 ED Course/Assessment/Plan: 74-year-old female was changing batteries 2:00 and suffered a fall from a dining room chair striking her lower back and occipital scalp inside of her home, as this simple linear occipital scalp laceration which was repaired with 2 ivy, advised she will need to return in 7 to 10 days for staple removal, he is neurovascularly intact in bilateral lower extremities without any signs of cauda equina, isolated T12 compression fracture with minimal height loss requiring no intervention, no acute fracture at the left wrist advised repeat x-ray if significant pain continues in about 2 weeks, recommend RICE therapy and therapeutic dosing of Tylenol and ibuprofen, strict return criteria for any neurologic changes this evening, her and her verbalized understanding of this but at this point she is neurologically intact and has no signs of significant question and is low risk for intracranial hemorrhage Findings not consistent with ICH, cauda equina, wrist fracture, vertebral burst fracture, neurovascular compromise. Disposition of Scalp Laceration, Compression Fracture of T12 Vertebrae, Sprain of Left Wrist. Patient verbalized understanding of the plan and return to ED criteria and engaged in shared decision making. Medical Records Medical records reviewed: Yes I reviewed the patient's medical records. Imaging Data Radiologic Study: Attestation: I personally reviewed and interpreted this imaging study as follows: Imaging: X-Ray Radiologist's impression: EXAM: XR WRIST LT COMP NAVICULAR CLINICAL HISTORY: fall; L wrist pain. TECHNIQUE: 2D digital imaging was performed. COMPARISON: No exams were available for comparison FINDINGS: Four views There is no evidence of fracture or carpal dislocation nor significant ulnar variance. Scaphoid and scapholunate distance are unremarkable. Advanced degenerative changes in the 1st carpometacarpal joint are incidentally noted. Other articulations appear unremarkable. IMPRESSION: No acute fractures evident. Chronic degenerative changes are noted at the 1st carpometacarpal joint. Radiologic Study #2: Attestation: I personally reviewed and interpreted this imaging study as follows: Imaging: CT Scan Radiologist's impression: EXAM: CT LUMBAR SPINE WO CLINICAL HISTORY: lumbar pain, fall. TECHNIQUE: Imaging Protocol: Axial computed tomography images with coronal and sagittal reformatted images were created and reviewed COMPARISON: MR MRI - LUMBAR SPINE WO CONTRAST from 04/28/2018 CR XR DEXA BONE DENSITY W/WO LUCILA from 11/03/2021 FINDINGS: Bones: There is an acute appearing transverse fracture in the inferior half of T12 vertebral body, with minimal if any significant height loss of this vertebral body. There is no retropulsed cortex at this level... There are no lytic osseous lesions evident. In the lower lumbar spine there are chronic findings at L4-5 level with 1.4 cm anterior listhesis of L4 upon L5, similar to previous MRI scan of 2018. Central canal dimensions at this level are lower normal. There is no significant foraminal stenosis at this level. There is also degenerative antro listhesis of L3 upon L4 which has slightly increased from the MRI scan of 2018. There is no disc height loss at this level. Central canal dimensions are lower normal. Minimal foraminal stenosis at this level. INDIVIDUAL DISC LEVELS: There are no obvious focal disc herniations evident. PARASPINAL SOFT TISSUES: Visualized paraspinal tissues appear unremarkable. Sacroiliac joints appear unremarkable. IMPRESSION: 1. Main acute finding here is a transverse fracture in the inferior 3rd of the T12 vertebral body without significant height loss of this vertebral body at this time and no listhesis. Fracture does not extend into the pedicles. No retropulsed posterior cortex at this level If clinically indicated CT scan of thoracic spine can be performed if there is pain higher up than T12. 2. Other chronic listhesis evident at L3-4 and L4-5 levels as described above. Called by myself to ER 11/08/2024 at 5:30 p.m. Radiologic Study #3: Attestation: I personally reviewed and interpreted this imaging study as follows: Imaging: CT Scan Radiologist's impression: EXAM: CT THORACIC SPINE WO CLINICAL HISTORY: T12 frac on lumbar scan. TECHNIQUE: Imaging Protocol: Axial computed tomography images with coronal and sagittal reformatted images were created and reviewed. CONTRAST MATERIAL: Intravenous: None COMPARISON: CT CT LUMBAR SPINE WO from 11/08/2024 FINDINGS: OSSEOUS: There is a subtle transverse fracture in the lower 3rd of the T12 vertebral body without significant displacement and there is only minimal height loss at the inferior endplate level. Fracture lines do not extend into the pedicles. The posterior cortex of this vertebral body is intact and with no evidence of retropulsion nor spinal canal compromise at this level. No large disc herniations evident there is no prominent para-aortic hematoma. There are no other fractures evident in the thoracic spinal column. No listhesis. No facet joint malalignment. Soft tissues: Incidentally noted are nodules in the right thyroid lobe. There is also a benign cyst in left kidney incidentally noted. This does not require further workup. IMPRESSION: T12 fracture with slight indentation of the inferior endplate. Approximately 10 percent height loss. Posterior cortex is intact. Fracture does not extend into the posterior osseous elements and there is no canal compromise at this level nor elsewhere in the thoracic spinal column. There are no other thoracic vertebral body fractures. Report called by myself to ER 11/08/2024 at 6:12 p.m. Quality:SDOH Health Related Social Needs: No Data to Display [facility] All Active Problems (Updated 11/08/24 @ 18:34 by CHELY Zhang) Sprain of left wrist (Acute) Compression fracture of T12 vertebra (Acute) Scalp laceration (Acute) Thyroid nodule (Acute) Gastro-esophageal reflux disease without esophagitis (Acute) Social History Smoking/Tobacco Use Status: Never Smoking risk assessment performed?: Yes Alcohol Intake: current Alcohol Intake frequency: a few times a month Drug use: Never Substance use type: does not use Housing: house Do you feel safe at home: Yes Do you feel safe in your relationship?: Yes
--- NOTE | 2024-11-08 16:45 | DI.CT_ITS ---
Exam(s) CT LUMBAR SPINE WO EXAM: CT LUMBAR SPINE WO CLINICAL HISTORY: lumbar pain, fall. TECHNIQUE: Imaging Protocol: Axial computed tomography images with coronal and sagittal reformatted images were created and reviewed COMPARISON: MR MRI - LUMBAR SPINE WO CONTRAST from 04/28/2018 CR XR DEXA BONE DENSITY W/WO LUCILA from 11/03/2021 FINDINGS: Bones: There is an acute appearing transverse fracture in the inferior half of T12 vertebral body, w ith minimal if any significant height loss of this vertebral body. There is no retropulsed cortex at this level... There are no lytic osseous lesions evident. In the lower lumbar spine there are chronic findings at L4-5 level with 1.4 cm anterior listhesis of L4 upon L5, similar to previous MRI scan of 2018. Central canal dimensions at this level are lower n ormal. There is no significant foraminal stenosis at this level. There is also degenerative antro l isthesis of L3 upon L4 which has slightly increased from the MRI scan of 2018. There is no disc heig ht loss at this level. Central canal dimensions are lower normal. Minimal foraminal stenosis at thi s level. INDIVIDUAL DISC LEVELS: There are no obvious focal disc herniations evident. PARASPINAL SOFT TISSUES: Visualized paraspinal tissues appear unremarkable. Sacroiliac joints appear unremarkable. IMPRESSION: 1. Main acute finding here is a transverse fracture in the inferior 3rd of the T12 vertebral body wit hout significant height loss of this vertebral body at this time and no listhesis. Fracture does not extend into the pedicles. No retropulsed posterior cortex at this level If clinically indicated CT scan of thoracic spine can be performed if there is pain higher up than T1 2. 2. Other chronic listhesis evident at L3-4 and L4-5 levels as described above. Called by myself to ER 11/08/2024 at 5:30 p.m. RADIATION DOSE DELIVERED: 946.77mGy.cm Total DLP DATA REPOSITORY: All CT scans at this facility are submitted to the National Radiology Data Registry (NRDR) Dose Index Registry (DIR) with the [employer] ([employer]). RADIATION OPTIMIZATION: All CT scans at this facility use at least one of these dose optimization te chniques: automated exposure control; mA and/or kV adjustment per patient size (includes targeted exa ms where dose is matched to clinical indication); or iterative reconstruction.
--- NOTE | 2024-11-08 16:45 | DI.RAD_ITS ---
Exam(s) XR WRIST LT COMP NAVICULAR EXAM: XR WRIST LT COMP NAVICULAR CLINICAL HISTORY: fall; L wrist pain. TECHNIQUE: 2D digital imaging was performed. COMPARISON: No exams were available for comparison FINDINGS: Four views There is no evidence of fracture or carpal dislocation nor significant ulnar variance. Scaphoid and scapholunate distance are unremarkable. Advanced degenerative changes in the 1st carpometacarpal mando nt are incidentally noted. Other articulations appear unremarkable. IMPRESSION: No acute fractures evident. Chronic degenerative changes are noted at the 1st carpometacarpal joint. DATA REPOSITORY: RADIATION DOSE DELIVERED:
[2024-11-08] MEDS: Lidocaine/Epinephri/Tetracaine Topical Gel 3 ML TP (17:05)
--- NOTE | 2024-11-08 17:30 | DI.CT_ITS ---
Exam(s) CT THORACIC SPINE WO EXAM: CT THORACIC SPINE WO CLINICAL HISTORY: T12 frac on lumbar scan. TECHNIQUE: Imaging Protocol: Axial computed tomography images with coronal and sagittal reformatted images were created and reviewed. CONTRAST MATERIAL: Intravenous: None COMPARISON: CT CT LUMBAR SPINE WO from 11/08/2024 FINDINGS: OSSEOUS: There is a subtle transverse fracture in the lower 3rd of the T12 vertebral body without sig nificant displacement and there is only minimal height loss at the inferior endplate level. Fracture lines do not extend into the pedicles. The posterior cortex of this vertebral body is intact and wi th no evidence of retropulsion nor spinal canal compromise at this level. No large disc herniations evident there is no prominent para-aortic hematoma. There are no other fractures evident in the thoracic spinal column. No listhesis. No facet joint ma lalignment. Soft tissues: Incidentally noted are nodules in the right thyroid lobe. There is also a benign cyst in left kidney incidentally noted. This does not require further workup. IMPRESSION: T12 fracture with slight indentation of the inferior endplate. Approximately 10 percent height loss. Posterior cortex is intact. Fracture does not extend into the posterior osseous elements and there is no canal compromise at this level nor elsewhere in the thoracic spinal column. There are no othe r thoracic vertebral body fractures. Report called by myself to ER 11/08/2024 at 6:12 p.m. RADIATION DOSE DELIVERED: 982.34mGy.cm Total DLP DATA REPOSITORY: All CT scans at this facility are submitted to the National Radiology Data Registry (NRDR) Dose Index Registry (DIR) with the [employer] ([employer]). RADIATION OPTIMIZATION: All CT scans at this facility use at least one of these dose optimization te chniques: automated exposure control; mA and/or kV adjustment per patient size (includes targeted exa ms where dose is matched to clinical indication); or iterative reconstruction.
[2024-11-08 18:56] VITALS: BP 148/98; PULSE 62; RESP 18; TEMP 36.9; O2SAT 100
== END 2024-11-08 18:56 | disposition home or self-care (01) ==
PROVIDERS: Emergency Provider Physician Assistant; PCP Physician Assistant Medical
DX: S22.080A Wedge compression fracture of T11-T12 vertebra, initial encounter for closed fracture (principal); S63.502A Unspecified sprain of left wrist, initial encounter; S01.01XA Laceration without foreign body of scalp, initial encounter; W07.XXXA Fall from chair, initial encounter
CPT/HCPCS: 12001; 29125; 99284; 72128; 72131; 73110; 99283

== ENCOUNTER 2024-11-10 07:51 | Emergency (ER) | payer MEDICARE, SELFPAY ==
[2024-11-10 07:54] VITALS: BP 156/96; PULSE 79; TEMP 36.6; O2SAT 99
--- NOTE | 2024-11-10 08:04 | ED.GENADUL_ITS ---
Discharge Plan Disposition Patient Disposition: Home Discharge Details Clinical Impression: Stapled skin wound, Blood pressure elevated without history of HTN Primary Care Provider: Mari Barfield ED Provider: Belen Hicks Home Meds and New Rx's Prescriptions: No Action No Known Home Meds Discharge Instructions Additional Instructions: Please call your primary care provider to schedule a nurse visit to have your blood pressure rechecked. Have your ivy removed as discussed (there is just one remaining). Your wound is healing well. Gentle wound care as discussed. Try to avoid knit hats that may snag in your ivy Return to emergency care if you develop new chest pains, shortness of breath, severe headache,or if you are very worried and need to be rechecked again immediately Referrals: Mari Barfield PA [Primary Care Provider] - HPI General Date/Time Provider Initiated Documentation: 11/10/24 07:52 . HPI Narrative: Ivis is a 74 year old female who presents to the emergency department today for evaluation of loosened scalp staple. She reports she had ivy placed on Saturday (3 days ago) after a fall during which she sustained a scalp laceration. Yesterday she wore a knit cap and washed her hair (which she does every other day), feels a staple became loosened and caused her difficulty sleeping. No redness, bleeding, or pain around laceration. Past medical history is significant for T12 compression fx and L wrist sydnie associated with fall. Physical exam reassuring. Two scalp ivy in place, one of which is visibly partially dislodged from skin. Edges well approximated. NO surrounding e rythema/ecchymosis, drainage from wound, or tenderness with palpation. Partially dislodged staple removed for comfort. Advise f/u 7-10 days after placement of ivy for removal of remaining staple. Ivis's BP noted to be elevated today; she reports she is feeling fine. Recommend f/u with PCP for monitoring/evaluation of HTN. Reviewed discharge instructions with patient, including symptomatic management and red flags indicating need for return to emergency care Related Data Home Medications ?Medication ?Instructions ?Recorded ?Confirmed Unknown [No Known Home Meds] 11/08/24 11/10/24 Allergies Allergy/AdvReac Type Severity Reaction Status Date / Time No Known Allergies Allergy Unverified 11/10/24 07:57 General Stated Complaint: Recheck LUCINDA: 4 Review of Systems Narrative: see HPI Exam Const General: cooperative, healthy appearing, comfortable, no acute distress, well developed and well groomed Nutritional Appearance: average body habitus and well nourished Orientation: alert and oriented x3 HENMT Head: normocephalic, no Bauman's sign, laceration (well healed, [address] (1 partially dislodged)), no raccoon eyes, no scalp tenderness and No periorbital ecchymosis Ears: hearing grossly normal bilaterally General nose exam: external nose normal Face and sinus: normal facial exam Neck Neck: normal visual inspection Resp Effort & Inspection: normal respiratory effort and able to speak in complete sentences Neuro Cognition: normal cognition Speech: speech normal Gait: normal gait Course Vital Signs Vital signs: Vital Signs Temperature 36.6 C 11/10/24 07:54 Pulse 79 11/10/24 07:54 Blood Pressure 156/96 H 11/10/24 07:54 Pulse Oximetry 99 11/10/24 07:54 Temperature 36.6 C 11/10/24 07:54 Temperature Source Oral 11/10/24 07:54 Pulse 79 11/10/24 07:54 Blood Pressure 156/96 H 11/10/24 07:54 Pulse Oximetry 99 11/10/24 07:54 Medical Decision Making Quality:SDOH Health Related Social Needs: No Data to Display PFSH All Active Problems (Updated 11/10/24 @ 08:06 by Belen Phipps) Blood pressure elevated without history of HTN (Acute) Stapled skin wound (Acute) Sprain of left wrist (Acute) Compression fracture of T12 vertebra (Acute) Scalp laceration (Acute) Thyroid nodule (Acute) Gastro-esophageal reflux disease without esophagitis (Acute) Social History Smoking/Tobacco Use Status: Never Smoking risk assessment performed?: Yes Alcohol Intake: current Alcohol Intake frequency: a few times a month Drug use: Never Substance use type: does not use Housing: house Do you feel safe at home: Yes Do you feel safe in your relationship?: Yes PAWSS Have you Been Recently Intoxicated or Drunk Within the Last 30 days?: No Have you Ever Experienced Previous Episodes of Alcohol Withdrawal?: No Have you ever Experienced Withdrawal Seizures?: No Have you ever Experienced Delirium Tremens(DT)s?: No Have you ever undergone Alcohol Rehabilitation Treatment (i.e, inpt ot outpatient treatment programs)?: No Have you ever Experienced Blackouts?: No Have you ever Combined Alcohol with other Downers within the last 90 days?: No Have you ever Combined Alcohol with any other Substance of Abuse during the last 90 days?: No Positive Blood Alcohol level on Presentation? [PCS.BAL]: No Evidence of Increased Autonomic Activity (i.e. HR>120, tremor, sweating, agitation, nausea)?: No Result: 0
== END 2024-11-10 08:12 | disposition home or self-care (01) ==
PROVIDERS: Emergency Provider Nurse Practitioner Family; PCP Physician Assistant Medical
DX: S01.01XD Laceration without foreign body of scalp, subsequent encounter (principal); R03.0 Elevated blood-pressure reading, without diagnosis of hypertension; X58.XXXD Exposure to other specified factors, subsequent encounter
CPT/HCPCS: 99282

== ENCOUNTER 2024-11-18 15:42 | Outpatient (CLI) | payer MEDICARE, SELFPAY ==
--- NOTE | 2024-11-18 | DI.RAD_ITS ---
Exam(s) XR WRIST RT COMPLETE EXAM: XR WRIST RT COMPLETE CLINICAL HISTORY: PAIN OF RIGHT WRIST, M25.531. TECHNIQUE: 2D digital imaging was performed. Three views. COMPARISON: CR RIGHT THUMB from 07/28/2012 FINDINGS: BONES: No acute fracture is present. No bony destructive lesion is seen. JOINTS: The carpal bones are normally aligned. In severe narrowing of the 1st carpal metacarpal joint and periarticular spurring. SOFT TISSUE: Normal. 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 DATA REPOSITORY: RADIATION DOSE DELIVERED:
== END 2024-11-18 16:02 ==
LOC: DI 15:57
PROVIDERS: PCP Physician Assistant Medical; Visit Provider Physician Assistant Medical
DX: M25.531 Pain in right wrist (principal)
CPT/HCPCS: 73110

== ENCOUNTER 2024-12-17 09:41 | Outpatient (CLI) | payer MEDICARE, SELFPAY ==
--- NOTE | 2024-12-17 | DI.RAD_ITS ---
Exam(s) XR HAND LT COMPLETE EXAM: XR HAND LT COMPLETE CLINICAL HISTORY: SWELLING LT WRIST, M25.432, EFFUSION, PAIN, S/P FALL, ROM LIMITATIONS. TECHNIQUE: 2D digital imaging was performed. COMPARISON: No exams were available for comparison FINDINGS: 3 views There is nondisplaced mildly impacted fracture of the distal radius. No significant ulnar variance. There are no fractures evident in the hand. There are moderate-advanced degenerative changes at the 1st carpometacarpal joint. Other articulations appear unremarkable. No radiopaque foreign bodies. No osseous lesions. IMPRESSION: Fracture distal radius without significant displacement. No fractures in the hand. DATA REPOSITORY: RADIATION DOSE DELIVERED:
--- NOTE | 2024-12-17 | DI.RAD_ITS ---
Exam(s) XR WRIST LT COMPLETE EXAM: XR WRIST LT COMPLETE CLINICAL HISTORY: SWELLING LT WRIST, M25.432, EFFUSION, PAIN, S/P FALL WITH ROM LIMITATIONS. TECHNIQUE: 2D digital imaging was performed. COMPARISON: No exams were available for comparison FINDINGS: 3 views There is a mildly comminuted nondisplaced non angulated fracture of the distal radius. Does not appe ar to involve the radiocarpal joint space. Distal ulna and ulnar styloid are intact. There is no si gnificant ulnar variance. Scaphoid and scapholunate distance normal. There are degenerative changes in the 1st carpometacarpal joint incidentally noted. IMPRESSION: Nondisplaced fracture of the distal radius. DATA REPOSITORY: RADIATION DOSE DELIVERED:
== END 2024-12-17 10:01 ==
PROVIDERS: PCP Physician Assistant Medical; Visit Provider Family Medicine
DX: S52.135A Nondisplaced fracture of neck of left radius, initial encounter for closed fracture (principal); X58.XXXA Exposure to other specified factors, initial encounter
CPT/HCPCS: 73110; 73130

== ENCOUNTER → 2024-12-30 09:57 | Outpatient (BNVA) | payer MEDICARE, SELFPAY | PROVIDERS: PCP Physician Assistant Medical; Referring Provider Physician Assistant Medical; Visit Provider Physician Assistant | DX: S52.502A Unspecified fracture of the lower end of left radius, initial encounter for closed fracture (principal); W07.XXXA Fall from chair, initial encounter | CPT/HCPCS: 99213 ==

== ENCOUNTER 2025-02-01 10:14 | Outpatient (CLI) | payer MEDICARE, SELFPAY ==
--- NOTE | 2025-02-01 09:45 | DI.RAD_ITS ---
Exam(s) XR WRIST LT LIMITED EXAM: XR WRIST LT LIMITED CLINICAL HISTORY: F/U L DISTAL RAD FX. TECHNIQUE: 2D digital imaging was performed of the left wrist. Two images were obtained. PA and la teral views were obtained. COMPARISON: CR XR WRIST LT COMP NAVICULAR from 11/08/2024 CR XR WRIST LT COMPLETE from 12/17/2024 CR XR HAND LT COMPLETE from 12/17/2024 FINDINGS: BONES: There has been no change in alignment of the fracture involving the distal radial metaphysis. There is continued healing of the fracture. No new fractures identified. No bony destructive lesio n is seen. JOINTS: The carpal bones are normally aligned. There are degenerative changes seen at the 1st carpome tacarpal joint. SOFT TISSUE: Normal. IMPRESSION: No change in alignment of the healing distal left radial fracture. DATA REPOSITORY: RADIATION DOSE DELIVERED:
== END 2025-02-01 10:15 | disposition home or self-care (01) ==
LOC: DIORS 10:14
PROVIDERS: PCP Physician Assistant Medical; Referring Provider Physician Assistant Medical; Visit Provider Physician Assistant
DX: S52.502A Unspecified fracture of the lower end of left radius, initial encounter for closed fracture (principal); M18.12 Unilateral primary osteoarthritis of first carpometacarpal joint, left hand; X58.XXXA Exposure to other specified factors, initial encounter
CPT/HCPCS: 99213; 29125; 73100